=== PATIENT | female | born 1995 ===

== ENCOUNTER 2022-02-13 21:21 | Emergency (ER) | payer OTHER ==
--- OUTSIDE RECORDS SUMMARY | 2022-02-13 21:27 | XMS REPORT | Continuity of Care Document ---
:1995 Author Organization [facility] t Address [address] [place] [address] Care Team Providers Name Role Phone Dilip Barriosflora GravesMika Gilberto Primary Care Physician [phone] LEIDY MOSQUERA Attending Clinician Unavailable VERNELL WARD Attending Clinician Unavailable DEBBI HILL Attending Clinician Unavailable VERNELL WARD M.D. Attending Clinician Unavailable Chely Finney Attending Clinician LEIDY MOSQUERA M.D. Attending Clinician Unavailable Doctor Unassigned, [place] Attending Clinician Unavailable Payers Payer Name Policy Type Policy Number Effective Date Expiration Date Cintia LÓPEZ [id number] 2020 HEALTH PLAN 00:00:00 Problems Condition Condition Condition Status Onset Resolution Last Treating Co mments Source Name Details Category Date Date Treatment Clinician Date Fibromyalg Fibromyalg Disease Active [facility] T ia ia 01-06 Health 00:00: 00 Anxiety Anxiety Disease Active [facility] and and 01-[facility] Health depression depression 00:00: 00 No known No known Disease Unive rs active active ity of problems problems [facility] Anxiety Anxiety Problem Active [facility] and and Physici depression depression an s Anterior Anterior Problem Active [facility] chest wall chest wall Ph ysici pain pain ans Back pain Back pain Problem Active [facility] Physici ans Joint pain Joint pain Problem Active U T Physici ans Chronic Chronic Problem Active [facility] neck pain neck pain Phys ici ans Chronic Chronic Problem Active [facility] fatigue fatigue Physici ans [facility] Problem Active [facility] pain pain Physici syndrome syndrome ans Attention Attention Problem Active [facility] deficit deficit Physici hyperactiv hyperactiv an s ity ity disorder disorder (ADHD), (ADHD), unspecifie unspecifie d ADHD d ADHD type type 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 depressive disorder disorder Allergies, Adverse Reactions, Alerts Allergy Allergy Status Severity Reaction(s) Onset Inactive Treating Comm ents Source Name Type Date Date Clinician NO KNOWN Drug Active Univers ALLERGIE Class ity of S [facility] Social History Social Habit Start Date Stop Date Quantity Comments Source Exposure to Not sure [facility] SARS-CoV-2 (event) Alcohol intake 2020-04-07 2020-04-07 Current drinker Unive rsity of 00:00:00 00:00:00 of alcohol [facility] (finding) [place] Tobacco use and 2020-04-07 2020-04-07 Never used Universit y of exposure 00:00:00 00:00:00 [facility] Sex Assigned At [birth year] F [facility] 00:00:00 00:00:00 Smoking Status Start Date Stop Date Source Unknown if ever smoked [facility] Never smoker [facility] Medications Ordered Filled Start Stop Current Ordering Indication Dosage Frequency Signature Comments Components Source Medication Medication Date Date Medication? Clinician (SIG) Name Name DULoxetine 2021- Yes [id number] 60mg QD TAKE 1 [facility] (Cymbalta) 12-30 [facility] [address] 00:00: 04:59 (60 MG capsule 00 :00 TOTAL) BY MOUTH 1 (ONE) TIME EACH DAY. DON'T CRUSH/CHEW lisdexamfet 2021- Yes [id number] 50mg QD Take 1 UT amine 11-19 capsule Bamatea (Vyvanse) 00:00: 04:59 (50 mg 50 MG 00 :00 total) by capsule mouth 1 (one) time each day. lisdexamfet 2021- Yes [id number] 50mg QD Take 1 [facility] amine 11-18 capsule Bamatea (Vyvanse) 00:00: 04:59 (50 mg 50 MG 00 :00 total) by capsule mouth 1 (one) time each day. amphetamine Yes [id number] 20mg Take 1 UT -dextroamph 4-28 tablet (20 He alth etamine 00:00: mg total) (Adderall) 00 by mouth 1 20 MG (one) time tablet each day if needed (Focus/ ADHD). amphetamine 2021- No [id number] 20mg Take 1 UT -dextroamph 4-28 05-29 tablet (20 H ealth etamine 00:00: 04:59 mg total) (Adderall) 00 :00 by mouth 1 20 MG (one) time tablet each day if needed (Focus/ ADHD). amphetamine 2021- No [id number] 30mg Take 1 UT -dextroamph 4-28 05-12 capsule Heal th etamine XR 00:00: 00:00 (30 mg (Adderall 00 :00 total) by XR) 30 MG mouth 1 24 hr (one) time capsule each day in the morning. DULoxetine 2021- No [id number] 60mg QD TAKE 1 [facility] (Cymbalta) 2-25 05-27 CAPSULE [facility] [address] 00:00: 04:59 (60 MG capsule 00 :00 TOTAL) BY MOUTH 1 (ONE) TIME EACH DAY. DON'T CRUSH/CHEW DULoxetine 2021- No [id number] 60mg QD Take 1 [facility] (Cymbalta) 1-25 04-26 capsule [facility] [address] 00:00: 04:59 (60 mg capsule 00 :00 total) by mouth 1 (one) time each day. DON'T CRUSH/CHEW amphetamine 2021- No [id number] 30mg Take 1 UT -dextroamph 1-25 02-25 capsule Heal th etamine XR 00:00: 05:59 (30 mg (Adderall 00 :00 total) by XR) 30 MG mouth 1 24 hr (one) time capsule each day in the morning. amphetamine 2021- No [id number] 20mg Take 1 UT -dextroamph 1-25 02-25 tablet (20 H ealth etamine 00:00: 05:59 mg total) (Adderall) 00 :00 by mouth 1 20 MG (one) time tablet each day if needed (Focus/ ADHD). amphetamine 2020-07- No [id number] 10mg QD Take 1 UT -dextroamph 2-05 08-25 tablet (10 H ealth etamine 00:00: 00:00 mg total) (Adderall) 00 :00 by mouth 1 10 MG (one) time tablet each day. amphetamine 2020-07- No [id number] 30mg Take 1 UT -dextroamph 2-05 08- capsule Heal th etamine XR 00:00: 00:00 (30 mg (Adderall 00 :00 total) by XR) 30 MG mouth 1 24 hr (one) time capsule each day in the morning. DULoxetine 2020-07- No [id number] 60mg QD Take 1 [facility] (Cymbalta) 08-19- capsule [facility]alt [facility] [address] 00:00: 05:59 (60 mg capsule 00 :00 total) by mouth 1 (one) time each day. DON'T CRUSH/CHEW DULoxetine 2020-07- No [id number] 60mg QD Take 1 [facility] (Cymbalta) 08-19- capsule [facility]alt [facility] [address] 00:00: 00:00 (60 mg capsule 00 :00 total) by mouth 1 (one) time each day. DON'T CRUSH/CHEW amphetamine 2020-07- No [id number] 10mg QD Take 1 UT -dextroamph 1-30 12-31 tablet (10 H ealth etamine 00:00: 05:59 mg total) (Adderall) 00 :00 by mouth 1 10 MG (one) time tablet each day. amphetamine 2020-07- No [id number] 30mg Take 1 UT -dextroamph 1-30 12- capsule Heal th etamine XR 00:00: 05:59 (30 mg (Adderall 00 :00 total) by XR) 30 MG mouth 1 24 hr (one) time capsule each day in the morning. DULoxetine 2020-07- No [id number] 60mg QD Take 1 [facility] (Cymbalta) 07-14- capsule [facility] [address] 00:00: 05:59 (60 mg capsule 00 :00 total) by mouth 1 (one) time each day. DON'T CRUSH/CHEW DULoxetine 2020-07- No [id number] 60mg QD Take 1 [facility] (Cymbalta) 1 12-06 capsule [facility] [address] 00:00: 00:00 (60 mg capsule 00 :00 total) by mouth 1 (one) time each day. DON'T CRUSH/CHEW amphetamine 2020-07- No [id number] 10mg QD Take 1 UT -dextroamph 0-26 11-26 tablet (10 H ealth etamine 00:00: 05:59 mg total) (Adderall) 00 :00 by mouth 1 10 MG (one) time tablet each day. amphetamine 2020-07- No [id number] 30mg Take 1 UT -dextroamph 0-26 11-26 capsule Heal th etamine XR 00:00: 05:59 (30 mg (Adderall 00 :00 total) by XR) 30 MG mouth 1 24 hr (one) time capsule each day in the morning. amphetamine 2020-07- No [id number] 10mg QD Take 1 UT -dextroamph 0-26 11-26 tablet (10 H ealth etamine 00:00: 05:59 mg total) (Adderall) 00 :00 by mouth 1 10 MG (one) time tablet each day. amphetamine 2020-07- No [id number] 30mg Take 1 UT -dextroamph 0-26 11-26 capsule Heal th etamine XR 00:00: 05:59 (30 mg (Adderall 00 :00 total) by XR) 30 MG mouth 1 24 hr (one) time capsule each day in the morning. DULoxetine 2020-07 Yes [id number] 60mg QD Take 1 U T (Cymbalta) 0-06 capsule Health [address] 00:00: (60 mg capsule 00 total) by mouth 1 (one) time each day. Do not crush or chew. DULoxetine 2020-07 Yes [id number] 60mg QD Take 1 U T (Cymbalta) 0-06 capsule Health [address] 00:00: (60 mg capsule 00 total) by mouth 1 (one) time each day. Do not crush or chew. DULoxetine 2020-07 Yes [id number] 60mg QD Take 1 U T (Cymbalta) 0-06 capsule Health [address] 00:00: (60 mg capsule 00 total) by mouth 1 (one) time each day. Do not crush or chew. DULoxetine 2020-07 Yes [id number] 60mg QD Take 1 U T (Cymbalta) 0-06 capsule Health [address] 00:00: (60 mg capsule 00 total) by mouth 1 (one) time each day. Do not crush or chew. DULoxetine 2020-07- No [id number] 60mg QD Take 1 UT (Cymbalta) 0-06 12-06 capsule [facility]alt [facility] [address] 00:00: 05:59 (60 mg capsule 00 :00 total) by mouth 1 (one) time each day. Do not crush or chew. DULoxetine 2020-07- No [id number] 60mg QD Take 1 [facility] (Cymbalta) 0- 12-06 capsule [facility]alt [facility] [address] 00:00: 05:59 (60 mg capsule 00 :00 total) by mouth 1 (one) time each day. Do not crush or chew. DULoxetine 2020-07- No [id number] 60mg QD Take 1 UT (Cymbalta) 0- 12-06 capsule [facility]alt [facility] [address] 00:00: 05:59 (60 mg capsule 00 :00 total) by mouth 1 (one) time each day. DON'T CRUSH/CHEW DULoxetine 2020-07- No [id number] 60mg QD Take 1 UT (Cymbalta) 0-06 12-06 capsule [facility]alt [facility] [address] 00:00: 05:59 (60 mg capsule 00 :00 total) by mouth 1 (one) time each day. Do not crush or chew. DULoxetine 2020-07- No [id number] 60mg QD Take 1 UT (Cymbalta) 0-06 12-06 capsule [facility]alt [facility] [address] 00:00: 05:59 (60 mg capsule 00 :00 total) by mouth 1 (one) time each day. DON'T CRUSH/CHEW DULoxetine 2020-07- No [id number] 60mg QD Take 1 UT (Cymbalta) 0-06 12-06 capsule [facility]alt [facility] [address] 00:00: 05:59 (60 mg capsule 00 :00 total) by mouth 1 (one) time each day. Do not crush or chew. DULoxetine 2020-07- No [id number] 60mg QD Take 1 UT (Cymbalta) 0- 12-06 capsule [facility]alt [facility] [address] 00:00: 05:59 (60 mg capsule 00 :00 total) by mouth 1 (one) time each day. DON'T CRUSH/CHEW DULoxetine 2020-07- No [id number] 60mg QD Take 1 UT (Cymbalta) 0- 12-06 capsule [facility]alt [facility] [address] 00:00: 05:59 (60 mg capsule 00 :00 total) by mouth 1 (one) time each day. Do not crush or chew. DULoxetine 2020-07- No [id number] 60mg QD Take 1 UT (Cymbalta) 0- 12-06 capsule [facility]alt [facility] [address] 00:00: 05:59 (60 mg capsule 00 :00 total) by mouth 1 (one) time each day. Do not crush or chew. DULoxetine 2020-07- No [id number] 60mg QD Take 1 UT (Cymbalta) 0- 11-05 capsule [facility]alt [facility] [address] 00:00: 00:00 (60 mg capsule 00 :00 total) by mouth 1 (one) time each day. DON'T CRUSH/CHEW DULoxetine 2020- No [id number] 60mg QD Take 1 UT (Cymbalta) 9 11-27 capsule [facility]alt [facility] [address] 00:00: 05:59 (60 mg capsule 00 :00 total) by mouth 1 (one) time each day. DON'T CRUSH/CHEW DULoxetine 2020- No [id number] 60mg QD Take 1 UT (Cymbalta) 9 11-27 capsule [facility]alt [facility] [address] 00:00: 05:59 (60 mg capsule 00 :00 total) by mouth 1 (one) time each day. DON'T CRUSH/CHEW amphetamine 2020- No [id number] 10mg QD Take 1 UT -dextroamph -27 10-28 tablet (10 H ealth etamine 00:00: 04:59 mg total) (Adderall) 00 :00 by mouth 1 10 MG (one) time tablet each day. amphetamine 2020- No [id number] 30mg Take 1 UT -dextroamph 9-27 10-28 capsule Heal th etamine XR 00:00: 04:59 (30 mg (Adderall 00 :00 total) by XR) 30 MG mouth 1 24 hr (one) time capsule each day in the morning. amphetamine 2020- No [id number] 10mg QD Take 1 UT -dextroamph 9-27 10-28 tablet (10 H ealth etamine 00:00: 04:59 mg total) (Adderall) 00 :00 by mouth 1 10 MG (one) time tablet each day. amphetamine 2020- No [id number] 30mg Take 1 UT -dextroamph 9-27 10-28 capsule Heal th etamine XR 00:00: 04:59 (30 mg (Adderall 00 :00 total) by XR) 30 MG mouth 1 24 hr (one) time capsule each day in the morning. amphetamine 2020- No [id number] 10mg QD Take 1 UT -dextroamph 9-27 10-28 tablet (10 H ealth etamine 00:00: 04:59 mg total) (Adderall) 00 :00 by mouth 1 10 MG (one) time tablet each day. amphetamine 2020- No [id number] 30mg Take 1 UT -dextroamph 9-27 10-28 capsule Heal th etamine XR 00:00: 04:59 (30 mg (Adderall 00 :00 total) by XR) 30 MG mouth 1 24 hr (one) time capsule each day in the morning. amphetamine 2020- No [id number] 10mg QD Take 1 UT -dextroamph 9-27 10-26 tablet (10 H ealth etamine 00:00: 00:00 mg total) (Adderall) 00 :00 by mouth 1 10 MG (one) time tablet each day. amphetamine 2020- No [id number] 30mg Take 1 UT -dextroamph 9-27 10-26 capsule Heal th etamine XR 00:00: 00:00 (30 mg (Adderall 00 :00 total) by XR) 30 MG mouth 1 24 hr (one) time capsule each day in the morning. DULoxetine 2020- No [id number] 60mg QD Take 1 [facility] (Cymbalta) 9 10 capsule [facility]alt [facility] [address] 00:00: 00:00 (60 mg capsule 00 :00 total) by mouth 1 (one) time each day. DON'T CRUSH/CHEW amphetamine No [id number] 10mg QD Take 1 UT -dextroamph 8-09 05- tablet (10 H ealth etamine 00:00: 04:59 mg total) (Adderall) 00 :00 by mouth 1 10 MG (one) time tablet each day. amphetamine 2020- No [id number] 30mg Take 1 UT -dextroamph 8-31 - capsule Heal th etamine XR 00:00: 04:59 (30 mg (Adderall 00 :00 total) by XR) 30 MG mouth 1 24 hr (one) time capsule each day in the morning. amphetamine 2020- No [id number] 10mg QD Take 1 UT -dextroamph 804-09 tablet (10 H ealth etamine 00:00: 04:59 mg total) (Adderall) 00 :00 by mouth 1 10 MG (one) time tablet each day. amphetamine 2020- No [id number] 30mg Take 1 UT -dextroamph 804-09 capsule Heal th etamine XR 00:00: 04:59 (30 mg (Adderall 00 :00 total) by XR) 30 MG mouth 1 24 hr (one) time capsule each day in the morning. amphetamine 2020- No [id number] 10mg QD Take 1 UT -dextroamph 804-09 tablet (10 H ealth etamine 00:00: 04:59 mg total) (Adderall) 00 :00 by mouth 1 10 MG (one) time tablet each day. amphetamine 2020- No [id number] 30mg Take 1 UT -dextroamph 8-31 - capsule Heal th etamine XR 00:00: 04:59 (30 mg (Adderall 00 :00 total) by XR) 30 MG mouth 1 24 hr (one) time capsule each day in the morning. amphetamine 2020- No [id number] 10mg QD Take 1 UT -dextroamph 8- 10- tablet (10 H ealth etamine 00:00: 04:59 mg total) (Adderall) 00 :00 by mouth 1 10 MG (one) time tablet each day. amphetamine 2020- No [id number] 30mg Take 1 UT -dextroamph 8-09 05- capsule Heal th etamine XR 00:00: 04:59 (30 mg (Adderall 00 :00 total) by XR) 30 MG mouth 1 24 hr (one) time capsule each day in the morning. amphetamine 2020- No [id number] 10mg QD Take 1 UT -dextroamph 8-24 tablet (10 H ealth etamine 00:00: 00:00 mg total) (Adderall) 00 :00 by mouth 1 10 MG (one) time tablet each day. amphetamine 2020- No [id number] 30mg Take 1 UT -dextroamph 8- capsule Heal th etamine XR 00:00: 00:00 (30 mg (Adderall 00 :00 total) by XR) 30 MG mouth 1 24 hr (one) time capsule each day in the morning. amphetamine 2020- No [id number] 10mg QD Take 1 UT -dextroamph 8-24 tablet (10 H ealth etamine 00:00: 00:00 mg total) (Adderall) 00 :00 by mouth 1 10 MG (one) time tablet each day. amphetamine 2020- No [id number] 30mg Take 1 UT -dextroamph 03-09-24 capsule Heal th etamine XR 00:00: 00:00 (30 mg (Adderall 00 :00 total) by XR) 30 MG mouth 1 24 hr (one) time capsule each day in the morning. amphetamine 2020- No [id number] 10mg QD Take 1 UT -dextroamph 7-31 tablet (10 H ealth etamine 00:00: 00:00 mg total) (Adderall) 00 :00 by mouth 1 10 MG (one) time tablet each day. amphetamine 2020- No [id number] 30mg Take 1 UT -dextroamph 7-07 03-31 capsule Heal th etamine XR 00:00: 00:00 (30 mg (Adderall 00 :00 total) by XR) 30 MG mouth 1 24 hr (one) time capsule each day in the morning. amphetamine 2020- No [id number] 10mg QD Take 1 UT -dextroamph 02-04- tablet (10 H ealth etamine 00:00: 00:00 mg total) (Adderall) 00 :00 by mouth 1 10 MG (one) time tablet each day. amphetamine 2020- No [id number] 30mg Take 1 UT -dextroamph 02-04- capsule Heal th etamine XR 00:00: 00:00 (30 mg (Adderall 00 :00 total) by XR) 30 MG mouth 1 24 hr (one) time capsule each day in the morning. amphetamine 2020- No [id number] 10mg QD Take 1 UT -dextroamph 02-04- tablet (10 H ealth etamine 00:00: 04:59 mg total) (Adderall) 00 :00 by mouth 1 10 MG (one) time tablet each day. amphetamine 2020- No [id number] 30mg Take 1 UT -dextroamph 02-04- capsule Heal th etamine XR 00:00: 04:59 (30 mg (Adderall 00 :00 total) by XR) 30 MG mouth 1 24 hr (one) time capsule each day in the morning. escitalopra 2020- No 20mg 20 mg. UT m (Lexapro) 01-1913 Health 20 MG 19:30: 00:00 tablet 38 :00 DULoxetine Yes [id number] 60mg QD Take 1 UT (Cymbalta) 01-19 capsule Health [address] 00:00: (60 mg capsule 00 total) by mouth 1 (one) time each day. DON'T CRUSH/CHEW DULoxetine Yes [id number] 60mg QD Take 1 UT (Cymbalta) 01-19 capsule Health [address] 00:00: (60 mg capsule 00 total) by mouth 1 (one) time each day. DON'T CRUSH/CHEW DULoxetine 2020- No [id number] 60mg QD Take 1 UT (Cymbalta) 01-19 capsule [facility]alt [facility] [address] 00:00: 04:59 (60 mg capsule 00 :00 total) by mouth 1 (one) time each day. DON'T CRUSH/CHEW DULoxetine 2020- No [id number] 60mg QD Take 1 UT (Cymbalta) 01-19 capsule [facility]alt [facility] [address] 00:00: 04:59 (60 mg capsule 00 :00 total) by mouth 1 (one) time each day. DON'T CRUSH/CHEW DULoxetine 2020- No [id number] 60mg QD Take 1 UT (Cymbalta) 01-19 capsule [facility]alt [facility] [address] 00:00: 04:59 (60 mg capsule 00 :00 total) by mouth 1 (one) time each day. DON'T CRUSH/CHEW amphetamine 2020- No [id number] 5mg QD Take 1 UT -dextroamph 01-06 tablet (5 He alth etamine 00:00: 04:59 mg total) (Adderall) 00 :00 by mouth 1 5 MG tablet (one) time each day. amphetamine 2020- No [id number] 30mg Take 1 UT -dextroamph 01-06 capsule Heal th etamine XR 00:00: 04:59 (30 mg (Adderall 00 :00 total) by XR) 30 MG mouth 1 24 hr (one) time capsule each day in the morning. amphetamine 2020- No [id number] 5mg QD Take 1 UT -dextroamph 6- tablet (5 He alth etamine 00:00: 00:00 mg total) (Adderall) 00 :00 by mouth 1 5 MG tablet (one) time each day. amphetamine 2020- No [id number] 30mg Take 1 UT -dextroamph 6- capsule Heal th etamine XR 00:00: 00:00 (30 mg (Adderall 00 :00 total) by XR) 30 MG mouth 1 24 hr (one) time capsule each day in the morning. methylpheni 2020- No [id number] 30mg Take 1 UT date CD 12-31 capsule Health (Metadate 00:00: 00:00 (30 mg CD) 30 MG 00 :00 total) by daily mouth 1 capsule (one) time each day in the morning for 14 days. Do not crush or chew. methylpheni 2020- No [id number] 30mg Take 1 UT date CD 12-31 capsule Health (Metadate 00:00: 04:59 (30 mg CD) 30 MG 00 :00 total) by daily mouth 1 capsule (one) time each day in the morning for 14 days. Do not crush or chew. DULoxetine Yes [id number] TAKE 1 UT (Cymbalta) 6-17 CAPSULE BY [facility] [address] 00:00: MOUTH ONCE capsule 00 A DAY.START AFTER COMPLETING 7 DAYS OF 30 MG.DON'T CRUSH/CHEW DULoxetine Yes [id number] TAKE 1 UT (Cymbalta) -17 CAPSULE BY [facility] [address] 00:00: MOUTH ONCE capsule 00 A DAY.START AFTER COMPLETING 7 DAYS OF 30 MG.DON'T CRUSH/CHEW DULoxetine 2020- No [id number] TAKE 1 UT (Cymbalta) 12-24 CAPSULE BY He massiel [address] 00:00: 00:00 MOUTH ONCE capsule 00 :00 A DAY.START AFTER COMPLETING 7 DAYS OF 30 MG.DON'T CRUSH/CHEW escitalopra Yes 20mg 20 mg. [facility] m (Lexapro) - Health 20 MG 20:38: tablet 44 escitalopra Yes 20mg 20 mg. [facility] m (Lexapro) 5- Health 20 MG 20:38: tablet 44 escitalopra Yes 20mg 20 mg. [facility] m (Lexapro) 5- Health 20 MG 20:38: tablet 44 escitalopra 2020- Yes 20mg 20 mg. [facility] m (Lexapro) 5- Health 20 MG 20:38: tablet 44 DULoxetine Yes [id number] 30mg QD Take 1 UT (Cymbalta) - capsule Health [address] 00:00: (30 mg capsule 00 total) by mouth 1 (one) time each day for 7 days. Do not crush or chew. DULoxetine Yes [id number] 30mg QD Take 1 UT (Cymbalta) 5-26 capsule Health [address] 00:00: (30 mg capsule 00 total) by mouth 1 (one) time each day for 7 days. Do not crush or chew. DULoxetine Yes [id number] 30mg QD Take 1 UT (Cymbalta) 5-26 capsule Health [address] 00:00: (30 mg capsule 00 total) by mouth 1 (one) time each day for 7 days. Do not crush or chew. amphetamine Yes [id number] 30mg QD Take 1 UT -dextroamph 5-26 capsule Healt h etamine XR 00:00: (30 mg (Adderall 00 total) by XR) 30 MG mouth 1 24 hr (one) time capsule each day. Do not crush or chew. amphetamine Yes [id number] 5mg QD Take 1 UT -dextroamph 5-26 tablet (5 Hea lth etamine 00:00: mg total) (Adderall) 00 by mouth 1 5 MG tablet (one) time each day. DULoxetine 2020- No [id number] 60mg QD Take 1 UT (Cymbalta) 5-26 07-26 capsule [facility]alt [facility] [address] 00:00: 04:59 (60 mg capsule 00 :00 total) by mouth 1 (one) time each day. Start after completing 7 days of 30 mg. Do not crush or chew. amphetamine 2020- No [id number] 5mg QD Take 1 UT -dextroamph 5-26 07-13 tablet (5 He alth etamine 00:00: 00:00 mg total) (Adderall) 00 :00 by mouth 1 5 MG tablet (one) time each day. DULoxetine 2020- No [id number] 30mg QD Take 1 UT (Cymbalta) 5-26 07-13 capsule [facility]alt [facility] [address] 00:00: 00:00 (30 mg capsule 00 :00 total) by mouth 1 (one) time each day for 7 days. Do not crush or chew. amphetamine 2020- No [id number] 30mg QD Take 1 UT -dextroamph 5-26 07-13 capsule Heal th etamine XR 00:00: 00:00 (30 mg (Adderall 00 :00 total) by XR) 30 MG mouth 1 24 hr (one) time capsule each day. Do not crush or chew. amphetamine 2020- No [id number] 30mg QD Take 1 UT -dextroamph 5-02 01- capsule Heal th etamine XR 00:00: 04:59 (30 mg (Adderall 00 :00 total) by XR) 30 MG mouth 1 24 hr (one) time capsule each day. Do not crush or chew. amphetamine 2020- No [id number] 5mg QD Take 1 UT -dextroamph 5-02 01- tablet (5 He alth etamine 00:00: 04:59 mg total) (Adderall) 00 :00 by mouth 1 5 MG tablet (one) time each day. amphetamine 2020- No [id number] 30mg QD Take 1 UT -dextroamph 5-02 01- capsule Heal th etamine XR 00:00: 04:59 (30 mg (Adderall 00 :00 total) by XR) 30 MG mouth 1 24 hr (one) time capsule each day. Do not crush or chew. amphetamine 2020- No [id number] 5mg QD Take 1 UT -dextroamph -02 01- tablet (5 He alth etamine 00:00: 04:59 mg total) (Adderall) 00 :00 by mouth 1 5 MG tablet (one) time each day. amphetamine 2020- No [id number] 30mg QD Take 1 UT -dextroamph 5-02 01- capsule Heal th etamine XR 00:00: 04:59 (30 mg (Adderall 00 :00 total) by XR) 30 MG mouth 1 24 hr (one) time capsule each day. Do not crush or chew. amphetamine 2020- No [id number] 5mg QD Take 1 UT -dextroamph 5-02 01-26 tablet (5 He alth etamine 00:00: 04:59 mg total) (Adderall) 00 :00 by mouth 1 5 MG tablet (one) time each day. DULoxetine 2020- No [id number] 60mg QD Take 1 UT (Cymbalta) 5-26 06-17 capsule Healt [facility] [address] 00:00: 00:00 (60 mg capsule 00 :00 total) by mouth 1 (one) time each day. Start after completing 7 days of 30 mg. Do not crush or chew. DULoxetine 0 202- No [id number] 30mg QD Take 1 UT (Cymbalta) 12-02- capsule [facility]alt [facility] [address] 00:00: 04:59 (30 mg capsule 00 :00 total) by mouth 1 (one) time each day for 7 days. Do not crush or chew. Amphetamine Amphetamine Yes VERNELL TAKE 1 UT -Dextroamph -Dextroamph 4-29 DAISY CAPSULE Physici et ER 30 MG et ER 30 MG 00:00: M.D. DAILY. ans Oral Oral 00 Capsule Capsule Extended Extended Release 24 Release 24 Hour Hour Amphetamine Amphetamine 2020- Yes VERNELL Take 1 UT -Dextroamph -Dextroamph -29 DAISY tablet Physici etamine 5 etamine 5 00:00: M.D. daily as ans MG Oral MG Oral 00 needed for Tablet Tablet ADHD. amphetamine 2020-0 Yes 30mg 30 mg. UT -dextroamph -29 Health etamine XR 00:00: (Adderall 00 XR) 30 MG 24 hr capsule amphetamine 2020-0 Yes 5mg 5 mg. UT -dextroamph -29 Health etamine 00:00: (Adderall) 00 5 MG tablet amphetamine 2020-0 Yes 30mg 30 mg. UT -dextroamph -29 Health etamine XR 00:00: (Adderall 00 XR) 30 MG 24 hr capsule amphetamine 2020-0 Yes 5mg 5 mg. UT -dextroamph 4-29 Health etamine 00:00: (Adderall) 00 5 MG tablet amphetamine 2020-0 Yes 30mg 30 mg. UT -dextroamph 4-29 Health etamine XR 00:00: (Adderall 00 XR) 30 MG 24 hr capsule amphetamine 2020-0 Yes 5mg 5 mg. UT -dextroamph 4-29 Health etamine 00:00: (Adderall) 00 5 MG tablet amphetamine 2020-0 2020- No 30mg 30 mg. UT -dextroamph 4-29 06-30 Health etamine XR 00:00: 00:00 (Adderall 00 :00 XR) 30 MG 24 hr capsule amphetamine 2020- No 5mg 5 mg. UT -dextroamph 11-05 Health etamine 00:00: 00:00 (Adderall) 00 :00 5 MG tablet escitalopra 2020- No [id number] 10mg Take 1 [facility] m oxalate 2-19 -22 tablet by ity of 10 mg 00:00: 04:59 mouth [place] tablet 00 :00 daily for Medical 30 days. [place] escitalopra 2020- No [id number] 10mg Take 1 [facility] m oxalate 2-19 -22 tablet by ity of 10 mg 00:00: 04:59 mouth [place] tablet 00 :00 daily for Medical 30 days. [place] escitalopra 2019-07 No [id number] 10mg Take 1 [facility] m oxalate 1-24 02-23 tablet by [facility] of 10 mg 00:00: 05:59 mouth [place] tablet 00 :00 daily for Medical 90 days. [place] escitalopra 2019-07 No [id number] 10mg Take 1 [facility] oxalate 1-24 02-19 tablet by [facility] of 10 mg 00:00: 00:00 mouth [place] tablet 00 :00 daily for Medical 90 days. [place] escitalopra 2019- No [id number] 10mg Take 1 [facility] oxalate 9-29 11-29 tablet by [facility] of 10 mg 00:00: 05:59 mouth [place] tablet 00 :00 daily for Medical 60 days. [place] [facility]ra 2019- No [id number] 10mg Take 1 Univers m oxalate 9-29 11-29 tablet by ity of 10 mg 00:00: 05:59 mouth [place] tablet 00 :00 daily for Medical 60 days. [place] escitalopra 2019- No [id number] 10mg Take 1 Univers m oxalate 9-29 11-24 tablet by ity of 10 mg 00:00: 00:00 mouth [place] tablet 00 :00 daily for Medical 60 days. [place] methylPREDN Yes [id number] Take by Univers ISolone 7-10 mouth ity of (MEDROL, 00:00: SEE-INSTRU [place] as VIRGILIO,) 4 mg 00 CTIONS. Medica l tablets follow Branch package directions methylPREDN 2020-0 Yes [id number] Take by Univers ISolone 7-10 mouth ity of (MEDROL, 00:00: SEE-INSTRU [place] as VIRGILIO,) 4 mg 00 CTIONS. Medica l tablets follow Branch package directions methylPREDN 2020-0 Yes [id number] Take by Univers ISolone 7-10 mouth ity of (MEDROL, 00:00: SEE-INSTRU [place] as VIRGILIO,) 4 mg 00 CTIONS. Medica l tablets follow Branch package directions methylPREDN 2020-0 Yes [id number] Take by Univers ISolone 7-10 mouth ity of (MEDROL, 00:00: SEE-INSTRU [place] as VIRGILIO,) 4 mg 00 CTIONS. Medica l tablets follow Branch package directions methylPREDN 2020-0 Yes [id number] Take by Univers ISolone 7-10 mouth ity of (MEDROL, 00:00: SEE-INSTRU [place] as VIRGILIO,) 4 mg 00 CTIONS. Medica l tablets follow Branch package directions methylPREDN 2020-0 Yes [id number] Take by Univers ISolone 7-10 mouth ity of (MEDROL, 00:00: SEE-INSTRU [place] as VIRGILIO,) 4 mg 00 CTIONS. Medica l tablets follow Branch package directions methylPREDN 2020-0 Yes [id number] Take by Univers ISolone 7-10 mouth ity of (MEDROL, 00:00: SEE-INSTRU [place] as VIRGILIO,) 4 mg 00 CTIONS. Medica l tablets follow Branch package directions methylPREDN 2020-0 Yes [id number] Take by Univers ISolone 7-10 mouth ity of (MEDROL, 00:00: SEE-INSTRU [place] as VIRGILIO,) 4 mg 00 CTIONS. Medica l tablets follow Branch package directions methylPREDN 2020-0 Yes [id number] Take by Univers ISolone 7-10 mouth ity of (MEDROL, 00:00: SEE-INSTRU [place] as VIRGILIO,) 4 mg 00 CTIONS. Medica l tablets follow Branch package directions multivit,ca 2020-0 Yes Take by Uni vers lc,mins/iro 6-18 mouth. ity of n/folic 13:18: [place] (ONE-A-DAY 53 Medical WOMENS Branch FORMULA ORAL) multivit,ca 2020-0 Yes Take by Uni vers lc,mins/iro 6-18 mouth. ity of n/folic 13:18: [place] (ONE-A-DAY 53 Medical WOMENS Branch FORMULA ORAL) multivit,ca 2020-0 Yes Take by Uni vers lc,mins/iro 6-18 mouth. ity of n/folic 13:18: [place] (ONE-A-DAY 53 Medical WOMENS Branch FORMULA ORAL) multivit,ca 2020-0 Yes Take by Uni vers lc,mins/iro 6-18 mouth. ity of n/folic 13:18: [place] (ONE-A-DAY 53 Medical WOMENS Branch FORMULA ORAL) multivit,ca 2020-0 Yes Take by Uni vers lc,mins/iro 6-18 mouth. ity of n/folic 13:18: [place] (ONE-A-DAY 53 Medical WOMENS Branch FORMULA ORAL) multivit,ca 2020-0 Yes Take by Uni vers lc,mins/iro 6-18 mouth. ity of n/folic 13:18: [place] (ONE-A-DAY 53 Medical WOMENS Branch FORMULA ORAL) multivit,ca 2020-0 Yes Take by Un marianna lc,mins/iro 6-18 mouth. ity of n/folic 13:18: [place] (ONE-A-DAY 53 Medical WOMENS Branch FORMULA ORAL) multivit,ca 2020-0 Yes Take by Uni vers lc,mins/iro 6-18 mouth. ity of n/folic 13:18: [place] (ONE-A-DAY 53 Medical WOMENS Branch FORMULA ORAL) multivit,ca 2020-0 Yes Take by Uni vers lc,mins/iro 6-18 mouth. ity of n/folic 13:18: [place] (ONE-A-DAY 53 Medical WOMENS Branch FORMULA ORAL) multivit,ca 2020-0 Yes Take by Uni vers lc,mins/iro 6-18 mouth. ity of n/folic 13:18: [place] (ONE-A-DAY 53 Medical WOMENS Branch FORMULA ORAL) multivit,ca 2020-0 Yes Take by Uni vers lc,mins/iro 6-18 mouth. ity of n/folic 13:18: [place] (ONE-A-DAY 53 Medical WOMENS Branch FORMULA ORAL) multivit,ca 2020-0 Yes Take by Uni vers lc,mins/iro 6-18 mouth. ity of n/folic 13:18: [place] (ONE-A-DAY 53 Medical WOMENS Branch FORMULA ORAL) multivit,ca 2020-0 Yes Take by Uni vers lc,mins/iro 6-18 mouth. ity of n/folic 13:18: [place] (ONE-A-DAY 53 Medical WOMENS Branch FORMULA ORAL) multivit,ca 2020-0 Yes Take by Uni vers lc,mins/iro 6-18 mouth. ity of n/folic 13:18: [place] (ONE-A-DAY 53 Medical WOMENS Branch FORMULA ORAL) multivit,ca 2020-0 Yes Take by Uni vers lc,mins/iro 6-18 mouth. ity of n/folic 13:18: [place] (ONE-A-DAY 53 Medical WOMENS Branch FORMULA ORAL) multivit,ca 2020-0 Yes Take by Uni vers lc,mins/iro 6-18 mouth. ity of n/folic 13:18: [place] (ONE-A-DAY 53 Medical WOMENS Branch FORMULA ORAL) multivit,ca 2020-0 Yes Take by Uni vers lc,mins/iro 6-18 mouth. ity of n/folic 13:18: [place] (ONE-A-DAY 53 Medical WOMENS Branch FORMULA ORAL) Tylenol Tylenol Yes TAKE [facility] CAPS CAPS CAPSULE [facility] PRN 500mg ans Escitalopra Escitalopra Yes VERNELL 1 QD TAKE 1 [facility] m Oxalate m Oxalate DAISY TABLET [facility] 20 MG Oral 20 MG Oral M.D. DAILY. a ns Tablet Tablet Immunizations Ordered Immunization Filled Immunization Date Status Commen ts Source Name Name COVID-19 Lisseta 18 & 2021-01-17 Completed [facility] 00:00:00 COVID-19 Moderna 18 & 2021-01-17 Completed [facility] Vacc[facility] 00:00:00 COVID-19 Moderna 12 & 2021-01-17 Completed [facility] Vaccination (RED 00:00:00 CAP) COVID-19 Moderna 18 & 2020 Completed [facility] Vaccination 00:00:00 COVID-19 Moderna 18 & 2020 Completed [facility] Vaccination 00:00:00 COVID-19 Moderna 12 & 2020 Completed [facility] Vaccination (RED 00:00:00 CAP) Vital Signs Vital Name Observation Time Observation Value Comments Source Systolic blood 2020-12-02 106 mm[Hg] [facility] pressure 20:37:00 Diastolic blood 2020-12-02 71 mm[Hg] [facility] pressure 20:37:00 Heart rate 2020-12-02 98 /min [facility] 20:37:00 Body temperature 2020-12-02 36.44 [facility]hel [facility] 20:37:00 Body height 2020-12-02 165.1 cm [facility] 20:37:00 Body weight 2020-12-02 52.708 kg [facility] 20:37:00 BMI 2020-12-02 19.34 kg/m2 [facility] 20:37:00 Systolic blood 2019-12-26 119 mm[Hg] [facility] pressure 13:03:00 [facility] [place] [facility] Diastolic blood 2019-12-26 72 mm[Hg] Portia o pressure 13:03:00 [facility] [place] [facility] Heart rate 2019-12-26 65 /[facility] 13:[facility]00 [facility] [place] [facility] Body temperature 2019-12-26 36.83 [facility] 13:03:00 [facility] [place] [facility] Respiratory rate 2019-12-26 16 /min [facility] 13:03:00 [facility] [place] [facility] Body height 2019-12-26 160 cm [facility] 13:03:00 [facility] [place] [facility] Body weight 2019-12-26 52.617 kg [facility] 13:03:00 [facility] [place] [facility] BMI 2019-12-26 20.55 kg/m2 [facility] 13:03:00 [facility] [place] [facility] Oxygen saturation 2019-12-26 99 /min [facility] in Arterial blood 13:03:00 [facility] by Pulse oximetry [place] Systolic blood 2020-08-11 110 mm[Hg] Location: RUE; [facility] pressure 08:50:00 Position: Sitting Diastolic blood 2020-08-11 74 mm[Hg] Location: RUE; [facility] pressure 08:50:00 Position: Sitting Body height 2020-08-11 65 [in_us] [facility] 08:50:00 Weight 2020-08-11 114.5 [lb_av] [facility] 08:50:00 Body mass index 2020-08-11 19.05 kg/m2 [facility] (BMI) [Ratio] 08:50:00 Body temperature 2020-08-11 97.7 [degF] [facility] 08:50:00 Heart Rate 2020-08-11 86 /min [facility] 08:50:00 Procedures Procedure Date / Time Performing Clinician Source Performed [facility] Sleep Lab - Sleep 2020-09-08 00:00:00 [facility] Study Home Sleep Test [PT] Aquatic 2020-09-08 00:00:00 [facility] Rehabilitations [Q] CYCLIC CITRULLINATED 2020-08-11 00:00:00 [facility] PEPTIDE (CCP) AB (IGG) [QL] SJOGRENS ANTIBODIES 2020-08-11 00:00:00 [facility] (SS-A,SS-B) [Q] HLA-B HIGH RESOLUTION 2020-08-11 00:00:00 [facility] SBT TYPING [QL] SED RATE BY MODIFIED 2020-08-11 00:00:00 [facility] WESTERGREN [QL] C-REACTIVE PROTEIN 2020-08-11 00:00:00 [facility] [QL] CREATINE KINASE, 2020-08-11 00:00:00 [facility] TOTAL XRAY Spine cervical 2 or 3 2020-08-11 00:00:00 [facility] view [id number] XRAY Sacroiliac joints 2020-08-11 00:00:00 [facility] series [id number] Spine T-L(or entire) 2-3 2020-08-11 00:00:00 [facility] Views DX XR CHEST 2 VW 2020-01-14 16:43:56 Chely Nunn [facility] Medical Branch ASSIGNMENT OF BENEFITS 2020-01-14 16:11:41 Doctor Unassigned, Un [facility] [place] [facility] CONSENT/REFUSAL FOR 2019-12-26 12:47:36 Doctor Unassigned, [facility] DIAGNOSIS AND TREATMENT [place] [facility] ASSIGNMENT OF BENEFITS 2019-12-26 12:47:23 Doctor Unassigned, [facility] [place] [facility] Plan of Care Planned Activity Planned Date Details Comments Source Diagnostic Test 2020-09-08 [facility] Sleep [facility] - Sleep [facility] Pending 00:00:00 Study Home Sleep Test [code = [facility] Sleep Lab - Sleep Study Home Sleep Test] Diagnostic Test 2020-09-08 [PT] Aquatic [facility] Pending 00:00:00 Rehabilitations [code = [PT] Aquatic Rehabilitations] Encounters Start End Encounter Admission Attending Care Care Encounter Source Date/Time Date/Time Type Type Clinicians Facility Department ID 2022-01-26 Outpatient EVELINE, [facility] [id number] [place] 08:49:25 BOCHRA [id number] [facility] 2022-01-06 Outpatient EVELINE, [facility] [id number] [place] 14:45:09 BOCHRA [id number] [facility] 2021-12-25 Outpatient [facility] [id number] [place] 00:42:40 [id number] [facility] 2021-11-19 Outpatient DAISY, [facility] [id number] UT 11:04:44 VERNELL [id number] [facility] 2021-11-18 Outpatient DAISY, [facility] [id number] UT 15:30:36 VERNELL [id number] [facility] 2021-11-05 Outpatient DAISY, [facility] [id number] UT 16:44:00 VERNELL [id number] [facility] 2021-11-03 Outpatient [facility] [id number] [place] 11:16:41 [id number] [facility] 2021-11-01 Outpatient DAISY, [facility] [id number] [place] 00:47:03 VERNELL [id number] [facility] 2021-08-31 Outpatient DAISY, [facility] [id number] [place] 13:24:40 VERNELL [facility] 2021-08-03 Outpatient DAISY, [facility] [id number] [place] 10:59:20 VERNELL [facility] 2022-01-06 2022-01-06 [facility] 1.2.840.114 [id number] [place] 00:00:00 00:00:[address] [id number] Health 9.2.7.2.686 [id number] 2021-11-18 2021-11-18 Telemedici [facility] 6410 1.2.840.114 [id number] [place] 15:30:00 15:55:[address] [id number] Health 9.2.7.2.686 [id number] 6 2021-08-03 2021-08-03 Telemedici [facility], [facility] 6410 1.2.840.114 [id number] [place] 10:30:00 10:46:[address] [id number] Health 9.2.7.2.686 [id number] 6 2021-06-14 2021-06-14 Refill [facility], [facility] 6410 [id number] [place] 00:00:00 00:00:[address] [id number] Health 9.2.7.2.686 [id number] 6 2021-05-14 2021-05-14 Refill [facility], [facility] 6410 1.2.862.547 [id number] [place] 00:00:00 00:00:[address] [id number] Health 9.2.7.2.686 [id number] 6 2021-05-04 2021-05-04 Refill [facility], [facility] 6410 1.2.871.172 [id number] [place] 00:00:00 00:00:[address] [id number] Health 9.2.7.2.686 [id number] 6 2021-05-04 2021-05-04 [facility], [facility] 6410 1.2.529.906 [id number] [place] 00:00:00 00:00:[address] [id number] Health 9.2.7.2.686 [id number] 2021-04-14 2021-04-14 [facility], [facility] 6410 1.2.871.541 [id number] [place] 00:00:00 00:00:[address] [id number] Health 9.2.7.2.686 [id number] 6 2021-04-05 2021-04-05 [facility], [facility] 6410 1.2.663.459 [id number] [place] 00:00:00 00:00:[address] 350.1.13.58 Health 9.2.7.2.686 [id number] 6 2021-04-02 2021-04-02 Refill [facility], [facility] 6410 1.2.311.043 [id number] [place] 00:00:00 00:00:[address] 350.1.13.58 Health 9.2.7.2.686 [id number] 2021-03-09 2021-03-09 Orders Daisy, [facility] 6410 1.2.188.786 [id number] [place] 00:00:00 00:00:[address] 350.1.13.58 Health 9.2.7.2.686 [id number] 6 2021-03-09 2021-03-09 Telephone [facility], [facility] 1.2.840.114 [id number] [place] 00:00:00 00:00:00 Vernell [facility] 350.1.13.58 [address] 9.2.7.2.686 [id number] 1 2021-01-27 2021-01-27 Emergency E LIZ, [facility] 7500 MHFB 11:45:00 13:40:00 DEBBI 2021-01-19 2021-01-19 Telemedici [facility], [facility] 6410 1.2.840.114 [id number] [place] 13:59:14 14:33:[address] 350.1.13.58 Health 9.2.7.2.686 [id number] 6 2020-12-31 2020-12-31 Telemedici [facility], [facility] 6410 1.2.840.114 1 [id number] HI 14:08:08 14:24:[address] 350.1.13.58 Health 9.2.7.2.686 [id number] 6 2020-12-24 2020-12-24 Refill Daisy, [facility] 6410 1.2.457.503 [id number] [place] 00:00:00 00:00:[address] 350.1.13.58 Health 9.2.7.2.686 [id number] 2020-12-24 2020-12-24 Orders [facility], [facility] 6410 1.2.686.531 [id number] HI 00:00:00 00:00:[address] 350.1.13.58 Health 9.2.7.2.686 [id number] 6 2020-12-02 2020-12-02 Office Daisy, [facility] 6410 1.2.566.582 [id number] HI 16:04:52 16:11:[address] 350.1.13.58 Health 9.2.7.2.686 [id number] 6 2020-11-05 2020-11-05 Appointmen [facility], [facility] Psychiatry [id number] [place] 13:00:00 13:00:00 t; VERNELL, Outpatient Shikha Varela - AARON Diaz M.D. 2020-09-26 2020-09-26 Refill Repsher, [facility] 1.2.840.114 [id number] Univers 00:00:00 00:00:00 Chely Health 350.1.13.10 i ty of Specialty [place].7.2.686 [place] - [id number] [facility] 314 Branch 2020-09-26 2020-09-26 Refill Repsher, [facility] 1.2.840.114 [id number] 00:00:00 00:00:00 [place] Health 350.1.13.10 Specialty 4.2.7.2.686 Care - [id number] [place] [address] 2020-09-22 2020-09-22 Refill Repsher, [facility] 1.2.840.114 [id number] [facility] 00:00:00 00:00:00 Cehly Health 350.1.13.10 i ty of Specialty 4.[place].7.2.686 [place] - [id number] [facility] 314 Branch 2020-09-22 2020-09-22 Refill Repsher, [facility] 1.2.840.114 [id number] 00:00:00 00:00:00 [facility] Health 350.1.13.10 Specialty 4.2.7.2.686 Care - [id number] [place] [address] 2020-09-08 2020-09-08 Appointmen EVELINE [facility] Rheumatolog [id number] [place] 08:00:00 08:00:00 t; Jackie FORBES i, M.D. ans BOCHRA, M.D. 2020-08-28 2020-08-28 Refill Repsher, [facility] 1.2.840.114 [id number] [facility] 00:00:00 00:00:00 [facility] Health 350.1.13.10 i ty of Specialty 4.2.7.2.686 [place] - [id number] [address] 2020-08-28 2020-08-28 [facility] 1.2.840.114 [id number] 00:00:00 00:00:00 [place] Health 350.1.13.10 Specialty 4.2.7.2.686 Care - [id number] [place] [address] 2020-08-11 2020-08-11 Appointmen EVELINE [facility] Rheumatolog [id number] [place] 08:30:00 08:30:00 t; Jackie FORBES i, M.D. ans BOCHRA, M.D. 2020-05-30 2020-05-30 Refill Repsher, [facility] 1.2.840.114 [id number] [facility] 00:00:00 00:00:00 [facility] Health 350.1.13.10 i ty of Specialty 4.2.7.2.686 [place] - [id number] [address] 2020-05-30 2020-05-30 Refill Repsher, [facility] 1.2.840.114 [id number] 00:00:00 00:00:00 [facility] Health 350.1.13.10 Specialty 4.2.7.2.686 Care - [id number] [place] [address] 2020-04-10 2020-04-10 Telephone Repsher, [facility] 1.2.840.114 [id number] Univers 00:00:00 00:00:00 [facility] 350.1.13.10 i ty of Specialty 4.2.7.2.686 [place] - [id number] [address] 2020-04-10 2020-04-10 [facility] 1.2.840.114 [id number] 00:00:00 00:00:00 [facility] Health 350.1.13.10 Specialty 4.2.7.2.686 Care - [id number] [place] [address] 2020-04-07 2020-04-07 Outpatient R BENTON, [facility] [id number] Univers 11:30:00 11:30:00 CHELY [id number] ity o [facility] 2020-04-07 2020-04-07 Outpatient R REPJEANNIE, [facility] [id number] Univers 11:30:00 11:30:00 CHELY ity o [facility] 2020-04-07 2020-04-07 Telemedici [facility] 1.2.840.114 [id number] Univers 07:38:34 08:08:34 ne Visit [facility] 350.1.13.10 ity of Specialty 4.2.7.2.686 [place] - [id number] [address] 2020-04-07 2020-04-07 Telemedici [facility] 1.2.840.114 [id number] 07:38:34 08:08:34 ne Visit [facility] Health 350.1.13.10 Specialty 4.2.7.2.686 Care - [id number] [place] [address] 2020-01-24 2020-01-24 Outpatient R REPJEANNIE, [facility] [id number] Univers 16:00:00 16:00:00 CHELY [id number] ity o [facility] 2020-01-24 2020-01-24 Outpatient R REPALENAER, [facility] [id number] Univers 16:00:00 16:00:00 CHELY ity o [facility] 2020-01-24 2020-01-24 Telemedici [facility] 1.2.840.114 [id number] Univers 11:22:53 11:52:53 ne Visit [facility] Health 350.1.13.10 ity of Specialty 4.2.7.2.686 [place] - [id number] [facility] 314 [place] 2020-01-24 2020-01-24 Telemedici [facility] 1.2.840.114 [id number] 11:22:53 11:52:53 ne Visit Chely Duran 350.1.13.10 Specialty 4.2.7.2.686 Care - [id number] [place] [address] 2020-01-14 2020-01-14 [facility] 1.2.839.912 [id number] Univers 11:00:00 23:59:00 Encounter Chely Sotelo 350.1.13.10 ity of [place] 4.2.7.2.686 [facility] [id number] [facility] 807 [place] 2020-01-14 2020-01-14 [facility] [id number]-20 Univers 11:00:00 11:00:00 CHELY [id number] jewell martinez f [facility] [place] [facility] 2020-01-14 2020-01-14 Outpatient [facility] [id number] Univers 00:00:00 00:00:00 CHELY martinez f [facility] [place] [facility] 2020-01-14 2020-01-14 Orders Doctor WALESKA 1.2.840.114 [id number] Univers 00:00:00 00:00:00 Only Unassigned, GINA 350.1.13.10 ity of [place] [facility] 4.2.7.2.686 Gray [id number] [facility] 009 Branch 2019-12-30 2019-12-30 Patient Doctor [facility] 1.2.840.114 [id number] Univers 00:00:00 00:00:00 Secure Msg Unassigned, Health 350.1.13.10 ity of [place] Specialty 4.2.7.2.686 [place] - [id number] [facility] 314 [place] 2019-12-30 2019-12-30 Patient Doctor [facility] 1.2.840.114 [id number] 00:00:00 00:00:00 Secure Msg Unassigned, Health 350.1.13.10 [place] Specialty 4.2.7.2.686 Care - [id number] [place] [address] 2019-12-27 2019-12-27 Patient Doctor [facility] 1.2.597.097 [id number] Univers 00:00:00 00:00:00 Secure Msg Unassigned, Y HEALTH 350.1.13.10 ity of [place] [facility] 4.2.7.2.[place] [id number] [facility] [address] [place] [address] 2019-12-27 2019-12-27 Patient Doctor [facility] 1.2.064.158 [id number] 00:00:00 00:00:00 Secure Msg Unassigned, Y HEALTH 350.1.13.10 [place] [facility] 4.2.7.2.686 [id number] 2019-12-26 2019-12-26 Office [facility] 1.2.840.114 [id number] Univers 07:47:31 12:34:01 Visit Chely [facility] 350.1.13.10 i ty of Specialty 4.2.7.2.686 [place] - [id number] [address] 2019-12-26 2019-12-26 Outpatient R [facility] [id number] Univers 08:00:00 08:00:00 CHELY jewell o f [facility] [place] [facility] 2019-12-26 2019-12-26 Orders Doctor WALESKA 1.2.840.114 [id number] Univers 00:00:00 00:00:00 Only Unassigned, GINA 350.1.13.10 ity of [place] [facility] 4.2.7.2.686 Gray as [id number] [address] Results Test Description Test Time Test Comments Results Result [facility] e Comments XRAY Sacroiliac 2020-08-10 EXAM: Sacroiliac [facility] joints series 3 joints series 66601 09:54:00 DXDATE: 08/22/2020 9:21 AM DESIGNER.INDICATION: Back Pain.COMPARISON: None available.TECHNIQUE : AP, RPO and LPO radiographs of the sacroiliac joints.FINDINGS:* The sacroiliac joint widths are well preserved.* No sclerosis or osseous erosion is seen on either side.* No other bony abnormality is identified.* No acute soft tissue abnormality is identified.IMPRESSI ON:No radiographic abnormality of the sacroiliac joints.--Read by: Anshul Prince MDDictated Date/time: 08/22/20 18:45Electronically Signed by: Anshul Prince MD 08/22/2117:59FINAL REPORT XRAY Spine 2020-08-10 EXAM:Thoracic spine [facility] thoracic frontal 3 x-ray, 3 lateral [id number] 09:54:00 view(s).Lumbar spine x-ray, 3 view(s).CLINICAL HX: - Back Pain.Age: 24 years.Gender: Female.TECHNIQUE:As above.Facility: [facility].COMPARISON:Non e.FINDINGS:--Thorac ic spine--Alignment: Intact.Fracture: No acute compression fracture or subluxation.Paraver tebral soft tissues: No large hematoma.Spondylosi s: No substantial intervertebral disc space narrowing.Other: None.--Lumbar spine--Alignment: Intact.Fracture: No acute compression fracture or subluxation.Spondyl osis: No substantial intervertebral disc space narrowing.Other: None.IMPRESSION:Tho racic spine:1. No acute compression fracture.Lumbar spine:1. No acute compression fracture.--Read by: Ran Prasad MDDictated Date/time: 08/24/20 07:31Electronically Signed by: Ran Prasad MD 08/24/2106:33FINAL REPORT XRAY Spine 2020-08-10 EXAM:Cervical spine [facility] cervical 2 or 3 3 x-ray, 3 view [id number] 09:53:00 view(s).CLINICAL HX: - Neck Pain.Age: 24 years.Gender: Female.TECHNIQUE:As above.Facility: [facility].COMPARISON:Non e.FINDINGS:Technica l: On the lateral view(s), the craniocervical junction to the [id number] are visualized.Alignmen t: Intact.Fracture: No acute fracture or subluxation.Odontoi d process: Intact.Prevertebral soft tissues: Within normal limits.Spondylosis: No substantial intervertebral disc space narrowing.Other: None.IMPRESSION:1. No acute fracture.--Read by: Ran Prasad MDDictated Date/time: 08/24/20 07:33Electronically Signed by: Ran Prasad MD 08/24/2106:35FINAL REPORT XRAY Spine lumbar 2020-08-10 EXAM:Thoracic spine [facility] [place] lateral [id number] 3 x-ray, 3 09:53:00 view(s).Lumbar spine x-ray, 3 view(s).CLINICAL HX: - Back Pain.Age: 24 years.Gender: Female.TECHNIQUE:As above.Facility: [facility].COMPARISON:Non .FINDINGS:--Thorac ic spine--Alignment: Intact.Fracture: No acute compression fracture or subluxation.Paraver tebral soft tissues: No large hematoma.Spondylosi s: No substantial intervertebral disc space narrowing.Other: None.--Lumbar spine--Alignment: Intact.Fracture: No acute compression fracture or subluxation.Spondyl osis: No substantial intervertebral disc space narrowing.Other: None.IMPRESSION:Tho racic spine:1. No acute compression fracture.Lumbar spine:1. No acute compression fracture.--Read by: Ran Prasad MDDictated Date/time: 08/24/20 07:31Electronically Signed by: Ran Prasad MD 08/24/2106:33FINAL REPORT [QL] CREATINE KINASE, TOTAL 2020-08-11 09:32:00 Test Item Value Reference Range Interpretation Comme nts CREATINE KINASE, TOTAL (test code = CREATINE KINASE, TOTAL) 59 u/l 29-143 N [facility][QL] SED RATE BY MODIFIED [id number] 09:32:00 Test Item Value Reference Range Interpretation Comments SED RATE BY MODIFIED 2 mm/h See_Comment N [Autom ated message] The [employer] (test code = syst em which generated SED RATE BY MODIFIED this re sult transmitted [employer]) reference range : < OR = 20. The referen ce range was not used to interpret this result as normal/abnormal . [facility][Q] HLA-B HIGH RESOLUTION SBT [id number] 09:32:00 Test Item Value Reference Interpretation Comments Range B-1 (test code = B-1) B*18:01 B-2 (test code = B-2) B*57:01 TEST METHOD (test code SBT = TEST METHOD) HISTOCOMPATIBILITY See RITIKA: 03- 1-MA-06-09 Director: LABORATORY INFORMATION Below Kaye Woodruff MD. CLIA: (test code = [id number] Dire ctor: Ewelina Shaw PFI: LABORATORY [id number] UNOS: [facility] -[facility]-1[facility] INFORMATION) test was develo ped and its performance characteristics determined by this laboratory . It has not been cleared or approved by the U.S. Foodan d Drug Administration. The FDA has determined that such clearance or ap provalis not necessary. This test is used for clinical pu rposes.It should not be r egarded as investigational or forresearch. is laboratory is certified un nikhil the Clinical LaboratoryImpro vement Amendments of 1 988 (CLIA-88) as qualifiedto perform high complexity clin ical laboratory test ing. [facility][QL] SJOGRENS ANTIBODIES (SS-A,SS-B)2020-08-11 09:32:00 Test Item Value Reference Range Interpretation Comments SJOGRENS ANTIBODY <1.0 NEG See_Comment N [Automate d message] The (SS-A) (test code = system w Z[employer] generated SJOGRENS ANTIBODY this resul t transmitted (SS-A)) reference range : <1.0 NEG. The refere nce range was not used to interpret this result as normal/abnormal . SJOGRENS ANTIBODY <1.0 NEG See_Comment N [Automate d message] The (SS-B) (test code = system w [employer] generated SJOGRENS ANTIBODY this resul t transmitted (SS-B)) reference range : <1.0 NEG. The refere nce range was not used to interpret this result as normal/abnormal . [facility][Q] CYCLIC CITRULLINATED PEPTIDE (CCP) AB (IGG)2020-08-11 09:32:00 Test Item Value Reference Range Interpretation Comments CYCLIC CITRULLINATED <16 N Referen ce PEPTIDE (CCP) AB (IGG) Range Negative: <20Weak (test code = CYCLIC Positive : CITRULLINATED PEPTIDE 20-39M oderate (CCP) AB (IGG)) Positive: 40 -59Strong Positive: >59 [facility][QL] C-REACTIVE [id number] 09:32:00 Test Item Value Reference Range Interpretation Comments C-REACTIVE PROTEIN (test code = 0.4 mg/L <8.0 N C-REACTIVE PROTEIN) [facility]XR CHEST 2 [id number] 17:03:04HISTORY: Sternum and rib pain. TECHNIQUE: PA and lateral views of the chest are obtained. FINDINGS: No acute pneumonia detected. No pneumothorax or pleural effusionor pulmonary congestion. Cardiomediastinal contour appears normal. CONCLUSIONS: Normal study.[facility], Radiant Results Inft User - 01/14/2020 12:04 PM CDTHISTORY: Sternum and rib pain.TECHNIQUE: PA and lateral views of the chest are obtained.FINDINGS: No acute pneumonia detected. No pneumothorax or pleural effusionor pulmonary congestion. Cardiomediastinal contour appears normal.CONCLUSIONS: Normal study. [facility]
[2022-02-13] MEDS ORDERED: NA CHLORIDE 0.9% 1,000 ML ONE (22:04)
[2022-02-13] MEDS ORDERED: PROMETHAZINE INJ 25 MG/ML AMP ONE (22:04)
[2022-02-13] MEDS ORDERED: FOLIC ACID 5 MG/ML VIAL ONE (22:05)
[2022-02-13 22:24] LABS: Urine Blood Negative (Negative); Urine Glucose Negative (Negative); Urine Protein Negative (Negative)
[2022-02-13 22:35] LABS: Absolute Lymphocytes (CBC) 1.5 K/uL (0.7-4.9); Hematocrit 34.6 % (36.0-45.0); Lymphocytes % 13.8 % (15.3-44.8); MCV 88.2 fL (80-100); MPV 7.9 fL (7.6-11.3); RBC Red Blood Cell Count 3.92 M/uL (3.86-4.86)
[2022-02-13 22:44] LABS: Urine Bacteria <20 /HPF (<20); Urine RBC None Seen /HPF (None Seen)
[2022-02-13 22:48] LABS: Albumin 3.4 g/dL (3.4-5.0); Bilirubin Total 0.4 mg/dL (0.2-1.0); Potassium 3.9 mmol/L (3.5-5.1); Protein, Total 6.9 g/dL (6.4-8.2)
--- NOTE | 2022-02-13 22:56 | ER ---
Nurse's Notes [facility] Name: Ngoc Mcgraw Age: 26 yrs Sex: Female : 1995 Arrival Date: 02/13/2022 Time: 21:26 Bed 14 Private MD: Diagnosis: Nausea with vomiting, unspecified;8 weeks gestation of ;Vomiting of , unspecified Presentation: 02/13 21:34 Chief complaint: Patient states: she is 8 weeks and was feeling nauseous bb earlier then vomited after dinner and vomited the 2nd time which was full of blood. She also has upper abdominal pain which is burning. Coronavirus screen: At this time, the client does not indicate any symptoms associated with coronavirus-19. Ebola Screen: No symptoms or risks identified at this time. Initial Sepsis Screen: Does the patient meet any 2 criteria? No. Patient's initial sepsis screen is negative. Does the patient have a suspected source of infection? No. Patient's initial sepsis screen is negative. Risk Assessment: Do you want to hurt yourself or someone else? Patient reports no desire to harm self or others. Onset of symptoms was February 13, 2022. 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 - Social history:: Smoking status: Patient denies any tobacco usage or history of. Screenin:56 Abuse screen: Denies threats or abuse. Denies injuries from another. Nutritional as6 screening: No deficits noted. Tuberculosis screening: No symptoms or risk factors identified. Fall Risk None identified. Assessment: 21:40 General: Appears in no apparent distress. Behavior is calm, cooperative. Pain: as6 Complains of pain in epigastric area Quality of pain is described as crampy. Neuro: Level of Consciousness is awake, alert, obeys commands. Respiratory: Respiratory effort is even, unlabored. GI: Reports upper abdominal pain, nausea, vomiting. 23:04 Reassessment: Patient states feeling better. Patient states symptoms have improved. tw5 Vital Signs: 21:34 BP 114 / 79; Pulse 73; Resp 16 S; Temp 98.7(O); Pulse Ox 100% ; Weight 61.23 kg (R); bb Height 5 ft. 3 in. (160.02 cm) (R); Pain 6/10; 22:56 BP 101 / 65; Pulse 73; Resp 18 S; Pulse Ox 100% on R/A; as6 23:04 BP 104 / 69; Pulse 58; Resp 18; Pulse Ox 100% on R/A; tw5 21:34 Body Mass Index 23.91 (61.23 kg, 160.02 cm) bb ED Course: 21:26 Patient arrived in ED. bp1 21:32 Gina Hadley FNP-C [facility]. snw 21:32 Dwight Easton MD is Attending Physician. snw 21:36 Triage completed. bb 21:36 Arm band placed on Patient placed in an exam room, on a stretcher, on pulse oximetry. bb EKG completed in triage. Results shown to MD. Family accompanied patient. 21:47 Jorge Ferreira, RN is Primary Nurse. as6 22:13 Inserted saline lock: 20 gauge in left antecubital area, using aseptic technique. as6 22:56 Bed in low position. Call light in reach. Side rails up X 1. Pulse ox on. NIBP on. Warm as6 blanket given. 23:04 No provider procedures requiring assistance completed. IV discontinued, intact, tw5 bleeding controlled, No redness/swelling at site. Pressure dressing applied. Administered Medications: 22:15 Drug: NS 0.9% 1000 ml Route: IV; Rate: 1 bolus; Site: left antecubital; as6 23:04 Follow up: Response: No adverse reaction; IV Status: Completed infusion; IV Intake: tw5 1000ml 22:15 Drug: Phenergan (promethazine) 12.5 mg Route: IVP; Site: left antecubital; as6 23:04 Follow up: Response: No adverse reaction; Nausea is decreased tw5 22:15 Drug: foLIC Acid 1 mg Route: IVPB; Site: left antecubital; as6 23:04 Follow up: IV Status: Completed infusion tw5 23:03 Drug: Pepcid (famotidine) 20 mg Route: IVP; Site: left antecubital; tw5 23:04 Follow up: Response: No adverse reaction; Medication administered at discharge. tw5 Medication: 23:04 VIS not applicable for this client. tw5 Intake: 23:04 IV: 1000ml; Total: 1000ml. Outcome: 22:55 Discharge ordered by MD. rpasad 23:04 Discharged to home ambulatory. tw5 23:04 Condition: good 23:04 Condition: improved 23:04 Discharge instructions given to patient, Instructed on discharge instructions, follow up and referral plans. Demonstrated understanding of instructions, follow-up care, medications, Prescriptions given X 2. 23:11 Patient left the ED. 5 Signatures: Gina Hadley, PAPER SPOOLER-C PAPER SPOOLER-Yuryw Nia Tucker RN RN bb Debra Fontenot Tiffany tw5 Jorge Ferreira RN RN as6 Corrections: (The following items were deleted from the chart) 21:50 21:34 Chief complaint: Patient states: she is 8 weeks and was feeling nauseous bb earlier then vomited after dinner and vomited the 2nd time which was full of blood bb
--- NOTE | 2022-02-13 22:57 | EDPHYS ---
Physician Documentation [facility] Name: Ngoc Mcgraw Age: 26 yrs Sex: Female : 1995 Arrival Date: 02/13/2022 Time: 21:26 Bed 14 Private MD: ED Physician Dwight Easton HPI: 02/13 21:45 This 26 yrs old Female presents to ER via Ambulatory with complaints of Abdominal Pain, snw Vomiting. 21:45 The patient presents with abdominal pain in the epigastric area. Onset: The snw symptoms/episode began/occurred suddenly. The symptoms do not radiate. Associated signs and symptoms: Pertinent positives: nausea, vomiting, vomiting blood. The symptoms are described as achy. Severity of pain: At its worst the pain was mild moderate. The patient has not experienced similar symptoms in the past. + . 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 - Social history:: Smoking status: Patient denies any tobacco usage or history of. ROS: 21:45 Constitutional: Negative for fever, chills, and weight loss, Eyes: Negative for injury, snw pain, redness, and discharge, ENT: Negative for injury, pain, and discharge, Neck: Negative for injury, pain, and swelling, Cardiovascular: Negative for chest pain, palpitations, and edema, Respiratory: Negative for shortness of breath, cough, wheezing, and pleuritic chest pain, Back: Negative for injury and pain, : Negative for injury, bleeding, discharge, and swelling, MS/Extremity: Negative for injury and deformity, Skin: Negative for injury, rash, and discoloration, Neuro: Negative for headache, weakness, numbness, tingling, and seizure. 21:45 Abdomen/GI: Positive for abdominal pain, nausea, vomiting, 8 weeks . Exam: 21:43 Constitutional: This is a well developed, well nourished patient who is awake, alert, snw and in no acute distress. Head/Face: Normocephalic, atraumatic. Eyes: Pupils equal round and reactive to light, extra-ocular motions intact. Lids and lashes normal. Conjunctiva and sclera are non-icteric and not injected. Cornea within normal limits. Periorbital areas with no swelling, redness, or edema. ENT: Nares patent. No nasal discharge, no septal abnormalities noted. Tympanic membranes are normal and external auditory canals are clear. Oropharynx with no redness, swelling, or masses, exudates, or evidence of obstruction, uvula midline. Mucous membranes moist. Neck: Trachea midline, no thyromegaly or masses palpated, and no cervical lymphadenopathy. Supple, full range of motion without nuchal rigidity, or vertebral point tenderness. No Meningismus. Chest/axilla: Normal chest wall appearance and motion. Nontender with no deformity. No lesions are appreciated. Cardiovascular: Regular rate and rhythm with a normal S1 and S2. No gallops, murmurs, or rubs. Normal PMI, no JVD. No pulse deficits. Respiratory: Lungs have equal breath sounds bilaterally, clear to auscultation and percussion. No rales, rhonchi or wheezes noted. No increased work of breathing, no retractions or nasal flaring. Back: No spinal tenderness. No costovertebral tenderness. Full range of motion. Skin: Warm, dry with normal turgor. Normal color with no rashes, no lesions, and no evidence of cellulitis. MS/ Extremity: Pulses equal, no cyanosis. Neurovascular intact. Full, normal range of motion. Neuro: Awake and alert, GCS 15, oriented to person, place, time, and situation. Cranial nerves II-XII grossly intact. Motor strength 5/5 in all extremities. Sensory grossly intact. Cerebellar exam normal. Normal gait. Psych: Awake, alert, with orientation to person, place and time. Behavior, mood, and affect are within normal limits. 21:43 Abdomen/GI: Inspection: abdomen appears normal, Bowel sounds: normal, Palpation: mild abdominal tenderness, in the epigastric area, emesis/gastric contents smell of bloody. Vital Signs: 21:34 BP 114 / 79; Pulse 73; Resp 16 S; Temp 98.7(O); Pulse Ox 100% ; Weight 61.23 kg (R); bb Height 5 ft. 3 in. (160.02 cm) (R); Pain 6/10; 22:56 BP 101 / 65; Pulse 73; Resp 18 S; Pulse Ox 100% on R/A; as6 23:04 BP 104 / 69; Pulse 58; Resp 18; Pulse Ox 100% on R/A; tw5 21:34 Body Mass Index 23.91 (61.23 kg, 160.02 cm) bb MDM: 22:10 Patient medically screened. snw 22:58 Data reviewed: vital signs, nurses notes. Data interpreted: Pulse oximetry: on room air snw is 100 %. Interpretation: normal. Counseling: I had a detailed discussion with the patient and/or guardian regarding: the historical points, exam findings, and any diagnostic results supporting the discharge/admit diagnosis, lab results, the need for outpatient follow up, to return to the emergency department if symptoms worsen or persist or if there are any questions or concerns that arise at home. Response to treatment: the patient's symptoms have markedly improved after treatment. Special discussion: Based on the patient's Hx, exam, and Dx evaluation, there is no indication for emergent surgery or inpatient Tx. It is understood by the patient/guardian that if the Sx's persist or worsen they need to return immediately for re-evaluation. 02/13 21:33 Order name: CBC with Diff; Complete Time: 22:40 snw 02/13 21:33 Order name: CMP; Complete Time: 22:51 snw 02/13 21:33 Order name: Lipase; Complete Time: 22:51 snw 02/13 21:33 Order name: Urine Microscopic Only; Complete Time: 22:45 snw 02/13 22:24 Order name: Urine --Ancillary (enter results); Complete Time: 22:43 mw2 02/13 21:33 Order name: IV Saline Lock; Complete Time: 22:24 snw 02/13 21:33 Order name: Labs collected and sent; Complete Time: 22:24 snw 02/13 21:33 Order name: Urine Dipstick-Ancillary (obtain specimen); Complete Time: 22:24 snw 02/13 22:24 Order name: Urine Dipstick-Ancillary; Complete Time: 22:27 EDMS 02/13 21:33 Order name: Urine Test (obtain specimen); Complete Time: 22:24 snw Administered Medications: 22:15 Drug: NS 0.9% 1000 ml Route: IV; Rate: 1 bolus; Site: left antecubital; as6 23:04 Follow up: Response: No adverse reaction; IV Status: Completed infusion; IV Intake: tw5 1000ml 22:15 Drug: Phenergan (promethazine) 12.5 mg Route: IVP; Site: left antecubital; as6 23:04 Follow up: Response: No adverse reaction; Nausea is decreased tw5 22:15 Drug: foLIC Acid 1 mg Route: IVPB; Site: left antecubital; as6 23:04 Follow up: IV Status: Completed infusion tw5 23:03 Drug: Pepcid (famotidine) 20 mg Route: IVP; Site: left antecubital; tw5 23:04 Follow up: Response: No adverse reaction; Medication administered at discharge. tw5 Disposition: 02/14 07:18 Co-signature as Attending Physician, Dwight Easton MD. 7 Disposition Summary: 02/13/22 22:55 Discharge Ordered Location: Home snw Condition: Stable snw Diagnosis - Nausea with vomiting, unspecified snw - 8 weeks gestation of snw - Vomiting of , unspecified snw Followup: snw - With: Private Physician - When: 2 - 3 days - Reason: Recheck today's complaints, Continuance of care, Re-evaluation by your physician Followup: snw - With: Emergency Department - When: As needed - Reason: Worsening of condition Discharge Instructions: - Discharge Summary Sheet snw - Morning Sickness, [id number] snw - Nausea and Vomiting, Adult snw - Care snw Forms: - Medication Reconciliation Form snw - Thank You Letter snw - Antibiotic Education snw - Prescription Opioid Use snw Prescriptions: - Folic Acid 1 mg Oral Tablet - take 1 tablet by ORAL route once daily; 30 tablet; Refills: 0, Product snw Selection Permitted - promethazine 25 mg Oral Tablet - take 1 tablet by ORAL route every 8 hours As needed; 10 tablet; Refills: 0, snw Product Selection Permitted Signatures: Dispatcher [employer] EDMN Gina Hadley FNP-C EXPERIMENTAL PREFLIGHT MECHANIC-Csnw Nia Tucker, RN RN bb Dwight Easton MD MD [id number] Nayeli Lara tw5 Jorge Ferreira, NATE RN as6
[2022-02-13] MEDS ORDERED: FAMOTIDINE 20 MG/2 ML VIAL IV ONE (23:05)
[2022-02-13 23:38] VITALS: TEMP 98.7; O2SAT 100
[2022-02-14 00:41] VITALS: BP 101/65
== END 2022-02-13 23:11 | disposition home or self-care (01) ==
LOC: ER 21:21
DX: O21.9 Vomiting of pregnancy, unspecified (principal); Z3A.08 8 weeks gestation of pregnancy
CPT/HCPCS: 85025; 36415; 81025; 83690; 80053; J2550; J7030; 81003; 81015; 96365; 96375; 99284